=== PATIENT | male | born 2000 | race Asian ===

== ENCOUNTER → 2021-03-30 | Outpatient (CLI) | payer OTHER ==
[2021-03-30 15:35] LABS: ABSOLUTE NEUTROPHILS 6.6 thou/uL (1.4-8.2); BASOPHILS 1.3 % (0.0-2.0); HEMATOCRIT 46.6 % (42.0-52.0); HEMOGLOBIN 15.6 gm/dL (14.0-18.0); LYMPHOCYTES 14.8 % (24.0-44.0); MCH 28.1 pg (26.0-34.0); MCHC 33.3 g/dL (28.0-37.0); MCV 84.4 fL (80.0-100.0); MONOCYTES 10.3 % (1.0-8.0); PLATELET COUNT 368 thou/uL (150-400); POLYS 71.6 % (36.0-66.0); RBC 5.53 mil/uL (4.50-6.00); RDW 13.2 % (10.5-14.5); WBC 9.3 thou/uL (4.0-11.0)
[2021-03-30 15:57] LABS: ALBUMIN 4.3 g/dL (3.4-5.0); ANION GAP 11 mmol/L (7-16); BUN 8 mg/dL (7-18); CHLORIDE 104 mmol/L (98-107); CHOLESTEROL 179 mg/dL (<170); CO2 28 mmol/L (21-32); GLUCOSE 87 mg/dL (74-106); HDL CHOLESTEROL 24 mg/dL (>40); LDL CHOLESTEROL 120 mg/dL (<110); POTASSIUM 4.1 mmol/L (3.5-5.1); SGOT 51 U/L (15-37); SGPT 113 U/L (30-65); SODIUM 143 mmol/L (136-145); TC:HDL 7.5 Ratio (Not establshd); TOTAL BILIRUBIN 0.6 mg/dL (0.2-1.0); TOTAL PROTEIN 8.1 g/dL (6.4-8.2); TRIGLYCERIDE 175 mg/dL (<150); VLDL 35 mg/dL (<40)
[2021-03-31 01:06] LABS: GLYCOHEMOGLOBIN (HGB A1C) 6.3 % (4.8-5.6)
== END ==
LOC: EDSEX 14:19 → LAB 14:19
PROVIDERS: ATTEND Family Medicine
DX: Z00.00 Encounter for general adult medical examination without abnormal findings (principal)